=== PATIENT | female | born 1960 | race Caucasian/White ===

== ENCOUNTER → 2020-06-13 10:16 | Outpatient (BNVA) | payer MEDICAID, SELFPAY | PROVIDERS: PCP Nurse Practitioner Family; Referring Provider Nurse Practitioner Family; Visit Provider Physician Assistant | DX: M67.432 Ganglion, left wrist (principal) | CPT/HCPCS: 99202; 99212 ==

== ENCOUNTER 2020-06-25 10:39 | Day surgery (SDC) | payer MEDICAID, SELFPAY ==
[2020-06-25] VITALS (7 sets, daily range): BP systolic 110–147; BP diastolic 71–99; PULSE 72–78; RESP 12–18; TEMP 36.1–36.2; O2SAT 96–100; BMI 42.3
--- NOTE | 2020-06-25 13:09 | HO.ANESPROP2 ---
[facility] [place] Past Medical History Medical History Asthma HTN (hypertension) Surgical History Surgical History History of left knee surgery Social History Social History Alcohol intake: never Smoking Status: Never smoker Use of substances other than those prescribed or required for medical reasons: No Advance Directives: No Meds Allergies Allergy/AdvReac Type Severity Reaction Status Date / Time penicillin V Allergy Unknown Unknown Verified 06/13/20 10:28 Penicillins [PENICILLINS] Allergy Unknown RASH Unverified 05/09/20 16:07 seafood Allergy Severe anaphylaxis Uncoded 03/25/20 00:00 SEAFOOD Allergy Mild DIFFICULTY Uncoded 05/09/20 16:07 BREATHING Home Medications Medication Instructions Recorded Confirmed Type cholecalciferol (vitamin D3) 50 50 mcg PO DAILY 06/13/20 History mcg (2,000 unit) capsule loratadine 10 mg capsule 10 mg PO DAILY 06/13/20 History loratadine 5 mg/5 mL oral solution 5 ml PO BID 06/13/20 History Exam Exam Date and Time: June 25, 2020 1309 Height,Weight and Vital Signs: Height 5 ft Weight 98.43 kg Last Vital Signs Temp 97.2 F 06/25/20 11:02 Pulse 78 06/25/20 11:02 Resp 18 06/25/20 11:02 BP 147/85 H 06/25/20 11:02 Pulse Ox 96 06/25/20 11:02 Airway Mallampati Class: IV TM Dist: >3cm Neck ROM: Full
--- NOTE | 2020-06-25 13:15 | HO.ANESPROP2 ---
[facility] Past Medical History Medical History Asthma HTN (hypertension) Surgical History Surgical History History of left knee surgery Social History Social History Alcohol intake: never Smoking Status: Never smoker Use of substances other than those prescribed or required for medical reasons: No Advance Directives: No Meds Allergies Allergy/AdvReac Type Severity Reaction Status Date / Time penicillin V Allergy Unknown Unknown Verified 06/13/20 10:28 Penicillins [PENICILLINS] Allergy Unknown RASH Unverified 05/09/20 16:07 seafood Allergy Severe anaphylaxis Uncoded 03/25/20 00:00 SEAFOOD Allergy Mild DIFFICULTY Uncoded 05/09/20 16:07 BREATHING Home Medications Medication Instructions Recorded Confirmed Type cholecalciferol (vitamin D3) 50 50 mcg PO DAILY 06/13/20 History mcg (2,000 unit) capsule loratadine 10 mg capsule 10 mg PO DAILY 06/13/20 History loratadine 5 mg/5 mL oral solution 5 ml PO BID 06/13/20 History Exam Exam Date and Time: June 25, 2020 1315 Height,Weight and Vital Signs: Height 5 ft Weight 98.43 kg Last Vital Signs Temp 97.2 F 06/25/20 11:02 Pulse 78 06/25/20 11:02 Resp 18 06/25/20 11:02 BP 147/85 H 06/25/20 11:02 Pulse Ox 96 06/25/20 11:02
[2020-06-25] MEDS: ceFAZolin Sodium/Dextrose,Iso 2 GM/50 ML PIGGYBACK IV (13:19)
[2020-06-25] MEDS: Lactated Ringers 1,000 ML 100 ML IVCONT (13:19)
--- NOTE | 2020-06-25 14:34 | PM.OP ---
Brief Operative Note Date of procedure: 06/25/20 Pre-op diagnosis: Left dorsal wrist ganglion Post-op diagnosis: same Procedure: Left dorsal wrist ganglion excision biopsy Implants: None Surgeon: Shahrzad Waldron MD Anesthesia: MAC Estimated blood loss (mL): 2.0 Tourniquet time (min): 13 Pathology: other (Left dorsal wrist ganglion) Condition: stable Disposition: PACU
--- NOTE | 2020-06-25 14:36 | W.PM.OPN ---
Operative Note Operative Note Narrative: Preop diagnosis: Left dorsal wrist ganglion Postop diagnosis: Same Procedure: Left dorsal wrist ganglion excisional biopsy Surgeon: Shahrzad Waldron MD Anesthesia: Mac Findings: Left dorsal wrist ganglion approximately 1.5 cm in diameter by 2 cm in length filled with clear viscous fluid consistent with a ganglion Tourniquet time: 13 minutes EBL: 2.0 mm Specimen: Left dorsal wrist ganglion Drains: None Complications: None Disposition: Brought to the recovery room in stable condition Plan: Follow-up in 10-14 days for wound check, suture removal and to check pathology Indications: The patient is of 59-year-old woman with a left dorsal wrist ganglion that has been unresponsive to nonoperative management. The risks and benefits of operative treatment were discussed with her and she wished to proceed with surgery. Procedure: Once consent was obtained patient was brought back to the operating suite and placed in the operating table in a supine position. Perioperative antibiotics and MAC anesthesia were administered by the anesthesia team. Tourniquet was applied to the proximal aspect of her left upper extremity and the limb was prepped and draped in a standard surgical fashion. The limb was elevated exsanguinated with Esmarch bandage and the tourniquet inflated to 250 mm of mercury for a total tourniquet time of 13 minutes. A 2 cm longitudinal incision was made over the dorsal aspect of her left wrist centered over the dorsal wrist ganglion. Ganglion was located over the ECRL and ECRB tendons. The incision was made with a 15. Blade through the skin into the subcutaneous tissues. Tenotomy scissors were then used to carefully dissect down through the subcutaneous layer to the dorsal wrist ganglion. It measured approximately 1.5 cm in diameter by approximately 2 cm in length. It was carefully dissected free from the surrounding tissues. It is talk was passing through the interval between the ECRL and ECRB tendons. The Bovie was used to cauterize the stalk to reduce risk of recurrence. And the ganglion was cut and removed to the back table to be sent for histopathologic review. No further masses were identified. At this point the tourniquet was deflated and hemostasis obtained with a brief period of Local pressure and monopolar electrocautery. Wound was irrigated with normal saline. The subcutaneous layer was closed with some 4-0 Vicryl suture, and the skin edges were reapproximated with some 5 0 nylon suture. The wound was infiltrated with some 1% lidocaine with epinephrine for postop pain control under sterile dressing was applied. The patient appears to have tolerated the procedure well with no complications. All digits were well vascularized conclusion of the case.
--- NOTE | 2020-06-25 16:04 | PC.NURSE ---
INTER USED FOR DISCHARGE INSTRUCTIONS, PT JUST STARTING TO FEEL LOCAL WEARING OFF, PT CAN TAKE IBUPROFEN WITH FOOD AND VICODIN SCRIPT ELECT TO PHARMACY PAIN 09/01
== END 2020-06-25 15:50 | disposition home or self-care (01) ==
PROVIDERS: PCP Nurse Practitioner Family; Visit Provider Orthopaedic Surgery
PROC: (CPT 25111; principal; 2020-06-25 12:30)
DX: M67.432 Ganglion, left wrist (principal); I10 Essential (primary) hypertension; J45.909 Unspecified asthma, uncomplicated; Z88.0 Allergy status to penicillin; Z79.899 Other long term (current) drug therapy
CPT/HCPCS: 25111; 88304; J0690; J1100; J2250; J2405; J3010

== ENCOUNTER → 2020-07-04 13:48 | Outpatient (BNVA) | payer MEDICAID, SELFPAY | PROVIDERS: PCP Nurse Practitioner Family; Referring Provider Nurse Practitioner Family; Visit Provider Orthopaedic Surgery | DX: Z48.811 Encounter for surgical aftercare following surgery on the nervous system (principal) | CPT/HCPCS: 99212 ==

== ENCOUNTER 2020-07-16 13:10 | Outpatient (REF) | payer MEDICAID, SELFPAY ==
--- NOTE | 2020-07-16 | MM_ITS ---
EXAMINATION: MM SCREENING DIGITAL BREAST TOMOSYNTHESIS, BILATERAL CLINICAL INFORMATION: Screening. Asymptomatic. The lifetime risk of breast cancer based on the Tyrer-Cuzick Model is 7%. COMPARISON: Mammography: 07/12/2019, 07/01/2018, 06/22/2017 TECHNIQUE: Digital breast tomosynthesis is performed in both the craniocaudal and mediolateral oblique views along with computer-aided detection (CAD). Synthesized 2D images are generated from the tomosynthesis. FINDINGS: The breasts are almost entirely fatty (ACR BI-RADS breast composition Category a). There are no significant masses, abnormal calcifications, or other abnormalities. There are scattered bilateral benign round and rim calcifications. The skin contours are smooth. MM/MM tomosynthesis screening BI IMPRESSION: No mammographic evidence of malignancy. ASSESSMENT: BI-RADS 1: Negative RECOMMENDATION: Routine annual mammography screening. This patient's information was entered into a reminder system with a target due date for their next mammogram.
== END 2020-07-16 13:11 | disposition home or self-care (01) ==
LOC: HO.MAMMO 13:10
PROVIDERS: PCP Nurse Practitioner Family; Visit Provider Nurse Practitioner Family
DX: Z12.31 Encounter for screening mammogram for malignant neoplasm of breast (principal)
CPT/HCPCS: 77063; 77067

== ENCOUNTER 2021-08-07 13:27 | Outpatient (REF) | payer MEDICAID, SELFPAY ==
--- NOTE | ~2021-08-07 | MM_ITS ---
EXAMINATION: MM SCREENING DIGITAL BREAST TOMOSYNTHESIS, BILATERAL CLINICAL INFORMATION: Screening. Asymptomatic. The lifetime risk of breast cancer based on the Tyrer-Cuzick Model is 7.4%. COMPARISON: Mammography: July 16, 2020 and studies dating back to February 06, 2014 TECHNIQUE: Digital breast tomosynthesis is performed in both the craniocaudal and mediolateral oblique views along with computer-aided detection (CAD). Synthesized 2D images are generated from the tomosynthesis. FINDINGS: The breasts are almost entirely fatty (ACR BI-RADS breast composition Category a). There are no significant masses, abnormal calcifications, or other abnormalities. MM/MM tomosynthesis screening BI IMPRESSION: There are no significant changes from prior study. ASSESSMENT: BI-RADS 1: Negative RECOMMENDATION: Routine annual mammography screening. This patient's information was entered into a reminder system with a target due date for their next mammogram.
== END 2021-08-07 13:28 | disposition home or self-care (01) ==
LOC: HO.MAMMO 13:27
PROVIDERS: PCP Nurse Practitioner Family; Visit Provider Nurse Practitioner Family
DX: Z12.31 Encounter for screening mammogram for malignant neoplasm of breast (principal)
CPT/HCPCS: 77063; 77067

== ENCOUNTER 2022-03-16 11:58 | Outpatient (REF) | payer MEDICAID, SELFPAY ==
--- NOTE | ~2022-03-16 | XR_ITS ---
EXAMINATION: XR LUMBOSACRAL SPINE CLINICAL INFORMATION: Low back pain COMPARISON: CT abdomen and pelvis and radiographs lumbar spine 03/13/2020. TECHNIQUE: Three views of the lumbosacral spine. FINDINGS: Normal lumbar segmentation with 5 nonrib-bearing lumbar vertebrae of normal height and normal lumbar lordosis. There is no vertebral compression or destructive process. Again, there are multilevel degenerative disc changes with mild disc narrowing and variable mild endplate sclerosis and vertebral spurring. Degenerative changes are slightly increased at L1-L2, L2-L3, L4-L5 since 2020. There are again facet degenerative changes at L4-S1. There are grade 0-1 spondylolisthesis again noted at L4-L5, without significant change. The SI joints and visualized sacrum are unremarkable. XR/XR lumbar spine 2-3V IMPRESSION: -Multilevel degenerative disc changes slightly increased since prior exam 03/13/2020. -Facet degeneration again noted L4-S1. -Grade 0-1 spondylolisthesis L4-L5 similar to prior study.
== END 2022-03-16 11:59 | disposition home or self-care (01) ==
LOC: HO.XRAY 11:58
PROVIDERS: PCP Nurse Practitioner Family; Visit Provider Family Medicine
DX: M54.50 Low back pain, unspecified (principal)
CPT/HCPCS: 72100

== ENCOUNTER 2022-08-11 10:12 | Emergency (ER) | payer MEDICAID, SELFPAY ==
[2022-08-11 10:20] VITALS: BP 156/90; PULSE 93; RESP 18; TEMP 37; O2SAT 98; BMI 43.0
[2022-08-11 10:46] LABS: MANUAL DIFF FLAG NO
[2022-08-11 10:49] LABS: Basophils Absolute Auto 0.1 X10*3/uL (0.0-0.2); Basophils Percent Auto 0.7 % (0-2); Hematocrit 45.2 % (37.0-47.0); Hemoglobin 14.8 g/dl (12.0-16.0); Imm Gran Abs Auto 0.04 X10*3/uL (0.00-0.03); Imm Gran Pct Auto 0.5 % (0.0-0.4); Lymphocytes Absolute Auto 1.8 X10*3/uL (1.2-4.9); Lymphocytes Percent Auto 21.6 % (20-40); Mean Corpuscular HGB Conc 32.7 g/dl (31.0-35.0); Mean Corpuscular Hemoglobin 30.2 pg (27.0-33.0); Mean Corpuscular Volume 92.2 fL (80.0-98.0); Mean Platelet Volume 10.4 fL (9.4-12.3); Monocytes Absolute Auto 0.8 X10*3/uL (0.1-1.2); Neutrophils Absolute Auto 5.8 x10*3/uL (2.0-8.3); Neutrophils Percent Auto 68.2 % (45-73); Platelet Count 301 X10*3/uL (160-400); Red Cell Distribution Width 13.2 % (11.0-16.0); White Blood Count 8.5 X10*3/uL (4.8-10.8)
[2022-08-11 11:08] LABS: Alanine Aminotransferase 16 U/L (0-31); Albumin Level 4.2 g/dL (3.5-5.0); Alkaline Phosphatase 65 U/L (39-117); Anion Gap 12 (12-20); Aspartate Amino Transferase 16 U/L (5-31); Blood Urea Nitrogen 17 mg/dL (9-16); Calcium 9.3 mg/dL (8.4-10.2); Carbon Dioxide 27 mmol/L (22-29); Chloride 101 mmol/L (96-108); Creatinine Clr Calc Pharmacy 54.7; Estimated Glomerular Filt Rate 49; Glucose Random 165 mg/dL (60-115); Lipase 24 U/L (8-78); Potassium 4.2 mmol/L (3.3-5.1); Sodium 136 mmol/L (135-145); Total Protein 7.5 g/dL (6.5-8.0)
[2022-08-11 11:25] LABS: Influenza A PCR POSITIVE (Negative); Influenza B PCR NEGATIVE (Negative); Resp Syncy Virus RNA Qual PCR NEGATIVE (Negative); SARS COV2 PCR INHOUSE NEGATIVE (Negative)
--- NOTE | 2022-08-11 16:47 | ED.GENADULT ---
HPI - General Adult General Chief complaint: Dizziness Stated complaint: Headache/Dizziness/Nausea Time Seen by Provider: 08/11/22 16:14 History of Present Illness HPI narrative: Patient complains of headache body aches fever for 2 days, she went to [facility] yesterday and was told she had a virus they were unsure what it was and they gave her a L fluids and she was discharged home, today she woke up feeling exactly the same headache body aches fever and is unsure what is going on and wants to be checked again, there are no acute changes she does not have a stiff neck she is not short of breath she has no chest pain no abdominal pain no vomiting, she has a mild dry cough, mild runny nose, no sputum, at this time she is not dizzy or nauseous, no vomiting today Related Data Home Medications Medication Instructions Recorded Confirmed cholecalciferol (vitamin D3) 50 50 mcg PO DAILY 06/13/20 mcg (2,000 unit) capsule loratadine 10 mg capsule 10 mg PO DAILY 06/13/20 loratadine 5 mg/5 mL oral solution 5 ml PO BID 06/13/20 (Claritin) Previous Rx's Medication Instructions Recorded hydrocodone 5 mg-acetaminophen 325 1 tab PO Q4-6H PRN pain #5 tabs 06/25/20 mg tablet acetaminophen 500 mg tablet 1,000 mg PO TID PRN pain #30 tabs 08/11/22 ibuprofen 600 mg tablet 600 mg PO Q6H PRN fever or pain 08/11/22 #20 tabs ondansetron 4 mg disintegrating 4 mg PO Q6H PRN nausea and 08/11/22 tablet vomiting #7 tabs oseltamivir 75 mg capsule (Tamiflu) 75 mg PO Q12H 5 days #10 caps 08/11/22 Allergies Allergy/AdvReac Type Severity Reaction Status Date / Time penicillin V Allergy Unknown Unknown Verified 06/13/20 10:28 Penicillins [PENICILLINS] Allergy Unknown RASH Unverified 05/09/20 16:07 seafood Allergy Severe anaphylaxis Uncoded 03/25/20 00:00 SEAFOOD Allergy Mild DIFFICULTY Uncoded 05/09/20 16:07 BREATHING Review of Systems Review of Systems: No headache now no stiff neck no difficulty breathing or swallowing no sore throat no chest pain no shortness of breath no abdominal pain no nausea vomiting or diarrhea now no skin rash Yes all other systems are reviewed and are negative [facility] Past Medical History Source: nursing notes reviewed Medical History Asthma HTN (hypertension) Surgical History History of left knee surgery Social History Social History Alcohol intake: never Advance Directives: No Physical Exam ED Vital Signs: Vital Signs - 24 hr 08/11/22 10:20 Temperature 98.6 F Pulse Rate 93 Respiratory Rate 18 Blood Pressure 156/90 H Pulse Oximetry 98 Oxygen Delivery Method Room Air BMI result Body Mass Index 43.0 General appearance no acute distress Eyes anicteric no pallor, no redness no discharge Sinuses nontender The pharynx is clear without redness swelling or exudate membranes are moist Neck is supple Chest clear to auscultation bilateral Heart no murmur Abdomen soft nontender Extremities full range of motion x4 Neuro gait and balance are normal, interaction both comprehension and expression are normal, cranial nerves 2-12 intact as tested and motor is 5/5 x4 Course Course Course Narrative: Well-appearing patient, interacting normally balance and gait are normal, she is not dizzy now she is not nauseous she tolerates p.o. tested positive for flu and was discharged home CBC and chemistry did not have any significant abnormalities Medical Decision Making Lab Data MDM Lab Attestation statement: I reviewed the patient's lab results. Result Diagrams: 08/11/22 10:43 08/11/22 10:43 Labs: Lab Results 08/11/22 08/11/22 08/11/22 Range/Units 10:43 10:43 10:43 WBC 8.5 (4.8-10.8) X10*3/uL RBC 4.90 (4.20-5.50) X10*6/uL Hgb 14.8 (12.0-16.0) g/dl Hct 45.2 (37.0-47.0) % MCV 92.2 (80.0-98.0) fL MCH 30.2 (27.0-33.0) pg MCHC 32.7 (31.0-35.0) g/dl RDW 13.2 (11.0-16.0) % Plt Count 301 (160-400) X10*3/uL MPV 10.4 (9.4-12.3) fL Immature Gran % (Auto) 0.5 H (0.0-0.4) % Neut % (Auto) 68.2 (45-73) % Lymph % (Auto) 21.6 (20-40) % Erath % (Auto) 9.0 (2-11) % Eos % (Auto) 0.0 (0-4) % Baso % (Auto) 0.7 (0-2) % Lymph # (Auto) 1.8 (1.2-4.9) X10*3/uL Erath # (Auto) 0.8 (0.1-1.2) X10*3/uL Eos # (Auto) 0.0 (0.0-0.4) X10*3/uL Baso # (Auto) 0.1 (0.0-0.2) X10*3/uL Abs Immat Gran (auto) 0.04 H (0.00-0.03) X10*3/uL Absolute Neuts (auto) 5.8 (2.0-8.3) x10*3/uL Absolute Nucleated RBC 0.000 (0.0-0.012) X10*3/uL Nucleated RBC % (auto) 0.0 (0.0-0.2) /100WBC Sodium 136 (135-145) mmol/L Potassium 4.2 (3.3-5.1) mmol/L Chloride 101 (96-108) mmol/L Carbon Dioxide 27 (22-29) mmol/L Anion Gap 12 (12-20) BUN 17 H (9-16) mg/dL Creatinine 1.13 (0.5-1.4) mg/dL Estim Creat Clear Calc 54.7 Estimated GFR 49 Random Glucose 165 H (60-115) mg/dL Calcium 9.3 (8.4-10.2) mg/dL Total Bilirubin 1.0 (0.0-1.0) mg/dL AST 16 (5-31) U/L ALT 16 (0-31) U/L Alkaline Phosphatase 65 (39-117) U/L Total Protein 7.5 (6.5-8.0) g/dL Albumin 4.2 (3.5-5.0) g/dL Lipase 24 (8-78) U/L Influenza Type A (PCR) POSITIVE A (Negative) Influenza Type B (PCR) NEGATIVE (Negative) RSV RNA Qual (PCR) NEGATIVE (Negative) SARS-CoV-2 RNA (RT-PCR) NEGATIVE (Negative) Discharge Plan Discharge Clinical Impression: Influenza Patient Disposition: Home, Self-Care Additional Instructions: You tested positive for flu You have common flu symptoms of headache fever body aches I prescribed a medication for flu called Tamiflu, it does not cure the flu but it may relieve symptoms somewhat If the Tamiflu medication causes stomach upset or any side effects or problems stop the medication as it will not cure the flu Return any time for dehydration difficulty breathing uncontrolled vomiting any worse condition or any concerns Prescriptions: New ibuprofen 600 mg tablet 600 mg PO Q6H PRN (Reason: fever or pain) Qty: 20 0RF ondansetron 4 mg tablet,disintegrating 4 mg PO Q6H PRN (Reason: nausea and vomiting) Qty: 7 0RF acetaminophen 500 mg tablet 1,000 mg PO TID PRN (Reason: pain) Qty: 30 0RF oseltamivir [Tamiflu] 75 mg capsule 75 mg PO Q12H 5 Days Qty: 10 0RF No Action hydrocodone-acetaminophen 5-325 mg tablet 1 tab PO Q4-6H PRN (Reason: pain) Qty: 5 0RF Interventions: ED Discharge Assessment Last Done: 08/11/22 17:42 Discharge Date/Time: 08/11/22 17:43
== END 2022-08-11 17:43 | disposition home or self-care (01) ==
PROVIDERS: Emergency Provider Emergency Medicine; PCP Nurse Practitioner Family
DX: J11.1 Influenza due to unidentified influenza virus with other respiratory manifestations (principal); R51.9 Headache, unspecified; Z20.822 Contact with and (suspected) exposure to COVID-19
CPT/HCPCS: 0241U; 80053; 83690; 85025; 99282; 99283

== ENCOUNTER 2023-04-28 20:13 | Emergency (ER) | payer MEDICAID, SELFPAY ==
--- NOTE | ~2023-04-28 | XR_ITS ---
EXAMINATION: XR ANKLE, RIGHT CLINICAL INFORMATION: Swelling; history of gout. COMPARISON: Right heel radiographs dated 10/24/2016. TECHNIQUE: AP, lateral, and mortise views of the right ankle. FINDINGS: Bony alignment and mineralization are normal. The ankle mortise is intact. No fracture, dislocation or right ankle joint effusion is seen. Boehler's angle is normal. There are large posterior and plantar calcaneal spurs. There is moderate soft tissue swelling adjacent to the lateral malleolus. XR/XR ankle RT min 3V IMPRESSION: 1. No fracture, dislocation or right ankle joint effusion is seen. 2. There is moderate soft tissue swelling adjacent to the right lateral malleolus. 3. There are large right calcaneal posterior and plantar spurs.
[2023-04-28 21:35] VITALS: BP 157/79; PULSE 96; RESP 16; TEMP 36.4; O2SAT 95; BMI 42.6
[2023-04-28 22:01] VITALS: BP 104/90; PULSE 86; RESP 16; TEMP 36.9; O2SAT 98
--- NOTE | 2023-04-28 22:21 | ED_ITS ---
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 Patient with known history of gout to the left great toe and patient has to walk on her lateral edge of the right foot causing pain and swelling in the ankle. No fever, no chills, no redness. Patient declined any trauma or fall or twisting to the ankle. Related Data Home Medications Medication Instructions Recorded Confirmed cholecalciferol (vitamin D3) 50 50 mcg PO DAILY 06/13/20 mcg (2,000 unit) capsule loratadine 10 mg capsule 10 mg PO DAILY 06/13/20 loratadine 5 mg/5 mL oral solution 5 ml PO BID 06/13/20 (Claritin) Previous Rx's Medication Instructions Recorded hydrocodone 5 mg-acetaminophen 325 1 tab PO Q4-6H PRN pain #5 tabs 06/25/20 mg tablet acetaminophen 500 mg tablet 1,000 mg PO TID PRN pain #30 tabs 08/11/22 ibuprofen 600 mg tablet 600 mg PO Q6H PRN fever or pain 08/11/22 #20 tabs ondansetron 4 mg disintegrating 4 mg PO Q6H PRN nausea and 08/11/22 tablet vomiting #7 tabs oseltamivir 75 mg capsule (Tamiflu) 75 mg PO Q12H 5 days #10 caps 08/11/22 Allergies Allergy/AdvReac Type Severity Reaction Status Date / Time penicillin V Allergy Unknown Unknown Verified 04/28/23 21:40 Penicillins [PENICILLINS] Allergy Unknown RASH Verified 04/28/23 21:40 seafood Allergy Severe anaphylaxis Uncoded 04/28/23 21:40 SEAFOOD Allergy Mild DIFFICULTY Uncoded 04/28/23 21:40 BREATHING Review of Systems Review of Systems: All other systems are reviewed and are negative Constitutional: Reports as per HPI and Reports no additional constitutional complaints Eyes: Reports as per HPI and Reports no additional eye complaints Reports system reviewed and no additional complaints, except as documented Cardiovascular: Reports as per HPI and Reports no additional cardiovascular complaints Respiratory: Reports as per HPI and Reports no additional respiratory complaints Gastrointestinal: Reports as per HPI and Reports no additional gastrointestinal complaints Genitourinary: Reports no additional female genitourinary complaints Musculoskeletal: Reports no additional musculoskeletal complaints Skin/Breast: Reports system reviewed and no additional complaints, except as docu Psychiatric: Reports no additional psychiatric complaints Endocrine: Reports no additional endocrine complaints Hematologic/Lymphatic: Reports no additional hematologic/lymphatic complaints Allergic/Immunologic: Reports no additional allergic/immunologic complaints Reports system reviewed and no additional complaints, except as documented and Reports Abnormal speech present [facility] Past Medical History Medical History Asthma HTN (hypertension) Surgical History History of left knee surgery Social History Social History Alcohol intake: never Advance Directives: No Advance Directives Information Provided: Yes Physical Exam Vital Signs: Vital Signs: Last Vital Signs Temp 98.5 F 04/28/23 22:01 Pulse 86 04/28/23 22:01 Resp 16 04/28/23 22:01 BP 104/90 H 04/28/23 22:01 Pulse Ox 98 04/28/23 22:01 O2 Del Method Room Air 04/28/23 22:01 BMI result Body Mass Index 42.6 Vital signs have been reviewed as appeared to be correct. Blood pressure normal. Heart rate normal. Respiration rate normal. Temperature normal. Oxygen saturation normal. Appearance: Alert. Oriented X3. No acute distress. Head: Normal external exam. Normocephalic. Atraumatic. No Crum signs noted. No raccoon eyes noted Eyes: PERRLA. EOMI. Conjunctiva and sclera normal. Eyelids normal. ENT: TM's Normal. Pharynx normal. Uvula midline. Moist mucous membranes. No trismus noted. No drooling noted. No muffled voice noted. Neck: Normal inspection. Neck supple. FROM. No adenopathy. Thyroid Normal. No meningeal signs. No neck mass noted. CVS: Normal heart rate and rhythm. Heart sound normal. No murmurs noted. Pulses normal throughout. Respiratory: No respiratory distress. Painless inspiration. Breath sounds normal. No wheezes/rales/rhonchi noted. Chest nontender. No accessory muscle usage noted or decreased air movement noted. Abdomen: Soft and nontender. Bowel sounds normal in all 4 quadrants. No di stention noted. No organomegaly noted. No visible injury noted. Back: No CVA tenderness. Full range of motion noted. Skin: Skin warm and dry. Normal skin color. Normal skin turgor. No rashes/le sions/lacerations noted. Extremities: Right foot/ankle: Swelling over the lateral malleolus with tenderness, no deformity, step-off. Strong PT/DP pulses. Neuro: Oriented X 3. Cranial nerve exam: II-XII are grossly intact No motor deficit. No sensory deficit. Reflexes normal. Course Course Course Narrative: Ankle swelling with pain due to a sprain patient is trying to walk on her lateral side of the foot. No acute fracture, neurovascular exam is intact, will apply Moo bandage wrap and apply ice with NSAIDs if needed. Medical Decision Making Differential Diagnosis Differential Diagnoses: The differential diagnosis associated with the presentation includes (Ankle fracture, ankle sprain, ankle effusion, joint infection, arthritis.) Admission/Observation Consideration of admission/observation: Escalation of care including admission/observation considered Independent Interpretation I performed an independent interpretation of an: Plain X-Ray (Right ankle: No fracture or dislocation.) Radiology Impression Discussion of test interpretation with radiology: I have reviewed the radiologist's reading. (1. No fracture, dislocation or right ankle joint effusion is seen. 2. There is moderate soft tissue swelling adjacent to the right lateral malleolus. 3. There are large right calcaneal posterior and plantar spurs.) Discharge Plan Discharge Clinical Impression: Ankle sprain Patient Disposition: Home, Self-Care Instructions: Ankle Sprain (ED) Prescriptions: No Action hydrocodone-acetaminophen 5-325 mg tablet 1 tab PO Q4-6H PRN (Reason: pain) Qty: 5 0RF ibuprofen 600 mg tablet 600 mg PO Q6H PRN (Reason: fever or pain) Qty: 20 0RF ondansetron 4 mg tablet,disintegrating 4 mg PO Q6H PRN (Reason: nausea and vomiting) Qty: 7 0RF acetaminophen 500 mg tablet 1,000 mg PO TID PRN (Reason: pain) Qty: 30 0RF oseltamivir [Tamiflu] 75 mg capsule 75 mg PO Q12H 5 Days Qty: 10 0RF Referrals: [facility] [Primary Care Provider] -
== END 2023-04-28 23:04 | disposition home or self-care (01) ==
PROVIDERS: Emergency Provider Emergency Medicine
DX: S93.401A Sprain of unspecified ligament of right ankle, initial encounter (principal); X58.XXXA Exposure to other specified factors, initial encounter; M77.31 Calcaneal spur, right foot; Y93.9 Activity, unspecified; Y92.9 Unspecified place or not applicable; Y99.9 Unspecified external cause status
CPT/HCPCS: 73610; 99283

== ENCOUNTER 2023-05-13 11:34 | Outpatient (REF) | payer MEDICAID, SELFPAY ==
[2023-05-13 13:05] LABS: MANUAL DIFF FLAG NO
[2023-05-13 13:16] LABS: Basophils Absolute Auto 0.1 X10*3/uL (0.0-0.2); Basophils Percent Auto 0.9 % (0-2); Eosinophils Absolute Auto 0.7 X10*3/uL (0.0-0.4); Eosinophils Percent Auto 9.7 % (0-4); Hematocrit 42.1 % (37.0-47.0); Hemoglobin 13.7 g/dl (12.0-16.0); Imm Gran Abs Auto 0.01 X10*3/uL (0.00-0.03); Imm Gran Pct Auto 0.1 % (0.0-0.4); Lymphocytes Absolute Auto 2.2 X10*3/uL (1.2-4.9); Lymphocytes Percent Auto 28.9 % (20-40); Mean Corpuscular HGB Conc 32.5 g/dl (31.0-35.0); Mean Corpuscular Volume 92.1 fL (80.0-98.0); Mean Platelet Volume 10.7 fL (9.4-12.3); Monocytes Absolute Auto 0.6 X10*3/uL (0.1-1.2); Monocytes Percent Auto 7.7 % (2-11); Neutrophils Percent Auto 52.7 % (45-73); Platelet Count 320 X10*3/uL (160-400); Red Blood Count 4.57 X10*6/uL (4.20-5.50); Red Cell Distribution Width 13.3 % (11.0-16.0); White Blood Count 7.6 X10*3/uL (4.8-10.8)
[2023-05-13 13:37] LABS: Estimated Average Glucose 108 mg/dL; Hemoglobin A1c % 5.4 % (<6.0)
[2023-05-13 13:38] LABS: Alanine Aminotransferase 15 U/L (0-31); Albumin Level 3.7 g/dL (3.5-5.0); Alkaline Phosphatase 64 U/L (39-117); Anion Gap 13 (12-20); Aspartate Amino Transferase 17 U/L (5-31); Bilirubin Total 1.1 mg/dL (0.0-1.0); Blood Urea Nitrogen 12 mg/dL (9-16); Calcium 9.4 mg/dL (8.4-10.2); Carbon Dioxide 26 mmol/L (22-29); Chloride 107 mmol/L (96-108); Cholesterol 177 mg/dL (<200); Estimated Glomerular Filt Rate > 60; Glucose Random 89 mg/dL (60-115); HDL Cholesterol 44 mg/dL (>40); LDL Cholesterol Calculated 112 mg/dL (<100); Sodium 142 mmol/L (135-145); Total Protein 7.2 g/dL (6.5-8.0); Triglycerides 109 mg/dL (<150)
[2023-05-13 13:46] LABS: TSH reflex Free T4 1.25 uIU/mL (0.32-4.0)
[2023-05-13 15:43] LABS: CT PCR NOT DETECTED (Not Detect.); NG PCR NOT DETECTED (Not Detect.)
[2023-05-14 08:17] LABS: HIV AB/AG Nonreactive (Nonreactive); HIV Num 1 0.04 S/CO (0.00-0.99)
[2023-05-17 12:04] LABS: HCV Log PCR <1.18 NOT DETECTED Log IU/mL (NOT DETECTED); HepC Viral Load <15 NOT DETECTED IU/mL (NOT DETECTED)
[2023-05-17 12:24] LABS: RPR Rapid Plasma Reagin NON-REACTIVE (NON-REACTIVE)
[2023-05-18 12:58] LABS: VITAMIN D (1,25 OH) D3 27 pg/mL; Vit D (1,25-Dihydroxy) Total 27 pg/mL (18-72); Vitamin D (1,25 OH) D2 <8 pg/mL
== END 2023-05-13 11:35 | disposition home or self-care (01) ==
LOC: HO.HHCL 11:34
PROVIDERS: Visit Provider Registered Nurse
DX: Z00.00 Encounter for general adult medical examination without abnormal findings (principal); Z20.2 Contact with and (suspected) exposure to infections with a predominantly sexual mode of transmission
CPT/HCPCS: 0353U; 80053; 80061; 82652; 83036; 84443; 85025; 86592; 87389; 87522

== ENCOUNTER 2023-05-27 17:55 | Outpatient (REF) | payer MEDICAID, SELFPAY | END 2023-05-27 17:56 | disposition home or self-care (01) | LOC: HO.HHCLNP 17:55 | PROVIDERS: Visit Provider Advanced Practice Midwife | DX: Z01.419 Encounter for gynecological examination (general) (routine) without abnormal findings (principal) | CPT/HCPCS: 87624; 88142 ==

== ENCOUNTER 2023-06-10 12:15 | Outpatient (REF) | payer MEDICAID, SELFPAY ==
--- NOTE | ~2023-06-10 | MM_ITS ---
EXAMINATION: MM SCREENING DIGITAL BREAST TOMOSYNTHESIS, BILATERAL CLINICAL INFORMATION: Screening. Asymptomatic. COMPARISON: Mammography: 08/07/2021, and dating back to 2009. TECHNIQUE: Digital breast tomosynthesis is performed in both the craniocaudal and mediolateral oblique views along with computer-aided detection (CAD). Synthesized 2D images are generated from the tomosynthesis. Additional bilateral MLO projections were performed. FINDINGS: The breasts are almost entirely fatty (ACR BI-RADS breast composition Category a). Scattered benign calcifications bilaterally. There are no suspicious masses, suspicious grouped calcifications, or areas of architectural distortion in either breast. The parenchymal pattern is stable from prior exams. MM/MM tomosynthesis screening BI IMPRESSION: No mammographic evidence of malignancy. Stable benign findings. ASSESSMENT: BI-RADS BI-RADS 2 - Benign Findings RECOMMENDATION: Routine annual mammography screening. 1 year F/U This examination should not preclude the clinical evaluation of a suspicious palpable abnormality. This patient's information was entered into a reminder system with a target due date for their next mammogram.
== END 2023-06-10 12:16 | disposition home or self-care (01) ==
LOC: HO.MAMMO 12:15
PROVIDERS: PCP Registered Nurse; Visit Provider Registered Nurse
DX: Z12.31 Encounter for screening mammogram for malignant neoplasm of breast (principal)
CPT/HCPCS: 77063; 77067

== ENCOUNTER → 2023-06-10 12:30 | Outpatient (BNV) | payer MEDICAID, SELFPAY | PROVIDERS: PCP Registered Nurse; Visit Provider Radiology Diagnostic Radiology | DX: Z12.31 Encounter for screening mammogram for malignant neoplasm of breast (principal) | CPT/HCPCS: 77063; 77067 ==

== ENCOUNTER 2023-06-20 09:39 | Emergency (ER) | payer MEDICAID, SELFPAY ==
--- NOTE | ~2023-06-20 | XR_ITS ---
EXAMINATION: XR LUMBOSACRAL SPINE CLINICAL INFORMATION: Lower back pain. COMPARISON: Lumbar spine radiographs dated 03/16/2022. TECHNIQUE: Three views of the lumbosacral spine. FINDINGS: The lumbar lordosis is maintained. Minimal grade 1 anterolisthesis of L4 on L5, unchanged. No acute fracture or subluxation. No loss of vertebral body height. Multilevel loss of intervertebral disc height with bilateral facet arthropathy appears similar when compared to the prior examination. No concerning lytic or blastic osseous lesion. No abnormal soft tissue calcification. XR/XR lumbar spine 2-3V IMPRESSION: 1. Minimal grade 1 anterolisthesis of L4 on L5, unchanged. 2. Multilevel degenerative disc disease and bilateral facet arthropathy, unchanged.
[2023-06-20 09:42] VITALS: BP 156/89; PULSE 88; RESP 19; TEMP 36.6; O2SAT 98; BMI 42.8
--- NOTE | 2023-06-20 10:33 | ED_ITS ---
HPI - General Adult General Chief complaint: Back Pain/Injury Stated complaint: back pain Time Seen by Provider: 06/20/23 09:47 Source: patient Mode of arrival: ambulatory Limitations: no limitations History of Present Illness HPI narrative: 62-year-old female with history of lumbar radiculopathy presents to ED for left- sided back pain that is worse on movement for the past 2 weeks. Patient denies any recent trauma, dysuria, hematuria, increased urinary frequency, nausea, vomiting, abdominal pain, or any urinary/ bowel incontinence. Patient states no fever chills. Patient denies any IV drug use or any history of HIV or hep C. Related Data Home Medications Medication Instructions Recorded Confirmed cholecalciferol (vitamin D3) 50 50 mcg PO DAILY 06/13/20 mcg (2,000 unit) capsule loratadine 10 mg capsule 10 mg PO DAILY 06/13/20 loratadine 5 mg/5 mL oral solution 5 ml PO BID 06/13/20 (Claritin) Previous Rx's Medication Instructions Recorded hydrocodone 5 mg-acetaminophen 325 1 tab PO Q4-6H PRN pain #5 tabs 06/25/20 mg tablet acetaminophen 500 mg tablet 1,000 mg (2 x 500 mg) PO TID PRN 08/11/22 pain #30 tabs ibuprofen 600 mg tablet 600 mg PO Q6H PRN fever or pain 08/11/22 #20 tabs ondansetron 4 mg disintegrating 4 mg PO Q6H PRN nausea and 08/11/22 tablet vomiting #7 tabs oseltamivir 75 mg capsule (Tamiflu) 75 mg PO Q12H 5 days #10 caps 08/11/22 cefuroxime axetil 250 mg tablet 250 mg PO Q12H 7 days #14 tabs 06/20/23 cyclobenzaprine 10 mg tablet 10 mg PO TID PRN muscle spasm 5 06/20/23 days #15 tabs ketorolac 10 mg tablet 10 mg PO Q6H 5 days #20 tabs 06/20/23 prednisone 20 mg tablet 40 mg (2 x 20 mg) PO DAILY 5 days 06/20/23 #10 tabs Allergies Allergy/AdvReac Type Severity Reaction Status Date / Time penicillin V Allergy Unknown Unknown Verified 06/20/23 09:42 Penicillins [PENICILLINS] Allergy Unknown RASH Verified 06/20/23 09:42 seafood Allergy Severe anaphylaxis Uncoded 06/20/23 09:42 SEAFOOD Allergy Mild DIFFICULTY Uncoded 06/20/23 09:42 BREATHING Review of Systems Review of Systems: Back pain worse on movement Yes all other systems are reviewed and are negative ON LICENSE OF [facility] Past Medical History Medical History Asthma HTN (hypertension) Surgical History History of left knee surgery Social History Social History Alcohol intake: never Smoked in Last 30 Days: No Use of substances other than those prescribed or required for medical reasons: No Advance Directives: No Advance Directives Information Provided: No Patient : No Physical Exam ED Vital Signs: Vital Signs - 24 hr 06/20/23 09:42 06/20/23 11:39 Temperature 98 F 97.9 F Pulse Rate 88 78 Respiratory Rate 19 16 Blood Pressure 156/89 H 140/77 H Pulse Oximetry 98 98 Oxygen Delivery Method Room Air Room Air BMI result Body Mass Index 42.8 Const General: cooperative, healthy appearing, comfortable, no acute distress, well developed and alert Orientation/consciousness: oriented to person, oriented to place, oriented to time and patient oriented x3 HENMT Head: Yes normal to inspection, Yes No palpable skull fracture present, Yes normocephalic and Yes atraumatic Eyes General: appearance normal, both eyes and all related structures Neck Neck: Yes normal visual inspection, Yes full ROM, Yes no lymphadenopathy, Yes no meningeal signs, Yes trachea midline, Yes supple, No anterior neck swelling and No tender Chest Chest palpation & inspection: normal inspection of the chest and normal palpation of entire chest wall Resp Effort & Inspection: normal respiratory effort and able to speak in complete sentences Auscultation: clear to auscultation bilaterally Cardio Jugular venous distension: no JVD Heart sounds: S1 normal heart sound present and S2 normal heart sound present GI Inspection: Yes normal to inspection Palpation (GI): Soft to palpation, not firm, nontender, no guarding and not r igid General: Yes no CVA tenderness Back/Spine/Pelvis Back: no CVA tenderness and back tenderness (left lumbar muscular pain on movement. ) Skin General skin exam: no rashes or lesions noted, elasticity normal and turgor normal Neuro General: oriented to person, oriented to place, oriented to time, patient oriented x3, gait normal, tone normal, moves all extremities, Normal light touch and pain sensation, no meningeal signs, no focal motor deficits, CN's II-XI intact bilaterally and normal sensation to monofilament Extrem General: Yes normal to inspection, Yes full ROM and Yes capillary refill normal Psych Appearance: grossly normal, well kempt and not disheveled Medications Administered Discontinued Medications Generic Name Dose Route Start Last Admin Trade Name Jose Carlos PRN Reason Stop Dose Admin Cyclobenzaprine HCl 10 mg 06/20/23 10:03 06/20/23 10:57 Cyclobenzaprine Hcl 10 Mg Tablet PO 06/20/23 10:04 10 mg ONCE ONE Administration Ketorolac Tromethamine 30 mg 06/20/23 10:03 06/20/23 10:58 Ketorolac Tromethamine 30 Mg/Ml Vial IM 06/20/23 10:04 30 mg ONCE ONE Administration Prednisone 60 mg 06/20/23 10:03 06/20/23 10:58 Prednisone 20 Mg Tablet PO 06/20/23 10:04 60 mg ONCE ONE Administration Medical Decision Making Medical Decision Making [facility] Narrative: 62 Yo female history of lumbar radiculopathy presents to ED for lower back pain worse on movement for the past 2 weeks. Patient denies any trauma, dysuria, hematuria, abdominal pain, nausea, vomiting, fever, chills, any urinary/ bowel incontinence. X-ray and UA ordered. 11:36am: Lumbar spine x-ray shows degenerative disc disease. UA shows possible mild urinary tract infection. Patient will be discharged with pain medication and antibiotics. Patient explain worrisome signs and told to return to ED if she has [place] any other concerning symptoms. Patient informed to follow- up with primary care provider Differential Diagnosis Differential Diagnoses: The differential diagnosis associated with the presentation includes ( UTI, kidney stones, pyelonephritis, lumbar radiculopathy, muscular back pain) Lab Data [facility] Lab Attestation statement: I reviewed the patient's lab results. Labs: Lab Results 06/20/23 Range/Units 10:29 Urine Color Yellow Urine Appearance Clear Urine pH 5.5 (5.0-9.0) Ur Specific [place] 1.010 (1.005-1.025) Urine Protein Negative (Neg-Trace) mg/dL Urine Glucose (UA) Negative (Negative) mg/dL Urine Ketones Negative (Negative) mg/dL Urine Blood Trace H (Negative) Urine Nitrite Negative (Negative) Ur Leukocyte Esterase Trace H (Negative) Urine RBC 3-5 H (0-2) /HPF Urine WBC 0-5 (0-5) /HPF Ur Squamous Epith Cells 3-5 (0-2) /HPF Urine Bacteria Trace (None Seen) Hyaline Casts 0-2 (0-2) /LPF Independent Interpretation I performed an independent interpretation of an: Plain X-Ray Radiology Impression Discussion of test interpretation with radiology: I have reviewed the radiologist's reading. Independent Historian Clinical information obtained from an independent historian. History obtained from or confirmed by: Other (Daughter) External Record Review External record reviewed: Other (prior ED visist) Prescription Management I considered prescription management with: Pain Medication and Antibiotic Discharge Plan Discharge Clinical Impression: Lumbar radiculopathy, UTI (urinary tract infection) Patient Disposition: Home, Self-Care Instructions: Urinary Tract Infection in Women (ED), Lumbar Radiculopathy (ED) Additional Instructions: La radiograf?a muestra yonathan enfermedad degenerativa del disco. La orina muestra yonathan posible reza?a infecci?n del tracto urinario. Le corie?n de oriana con antibi?ticos y analg?sicos. Heike un seguimiento con martinez proveedor de atenci?n primaria. Regrese al servicio de urgencias de inmediato si presenta cualquier dolor en el costado, fiebre, escalofr?os, n?useas, v?mitos, hematuria, disuria, incontinencia urinaria/intestinal, entumecimiento/debilidad de las extremidades inferiores, dolor abdominal o cualquier otro s?ntoma preocupante. Do not take any other NSAIDS with ketoralac. Prescriptions: New ketorolac 10 mg tablet 10 mg PO Q6H 5 Days Qty: 20 0RF Rx Instructions: Received 30mg IM toradol in the ED prednisone 20 mg tablet 40 mg PO DAILY 5 Days Qty: 10 0RF cyclobenzaprine 10 mg tablet 10 mg PO TID PRN (Reason: muscle spasm) 5 Days Qty: 15 0RF Rx Instructions: side effect is drowsiness. Do not take at work or while driving. cefuroxime axetil 250 mg tablet 250 mg PO Q12H 7 Days Qty: 14 0RF No Action hydrocodone-acetaminophen 5-325 mg tablet 1 tab PO Q4-6H PRN (Reason: pain) Qty: 5 0RF ibuprofen 600 mg tablet 600 mg PO Q6H PRN (Reason: fever or pain) Qty: 20 0RF ondansetron 4 mg tablet,disintegrating 4 mg PO Q6H PRN (Reason: nausea and vomiting) Qty: 7 0RF acetaminophen 500 mg tablet 1,000 mg PO TID PRN (Reason: pain) Qty: 30 0RF oseltamivir [Tamiflu] 75 mg capsule 75 mg PO Q12H 5 Days Qty: 10 0RF Interventions: ED Discharge Assessment Last Done: 06/20/23 12:08 Discharge Date/Time: 06/20/23 12:08 Print Language: Greenlandic
[2023-06-20 10:35] LABS: Appearance Urine Clear; Color Urine Yellow; Glucose Urine UA Negative (Negative); Leukocyte Esterase Urine Trace (Negative); Nitrite Urine Negative (Negative); PH 5.5 (5.0-9.0); UMIC TRIGGER UACC YES; Urine Blood Trace (Negative); Urine Ketones Negative (Negative); Urine Protein Negative (Neg-Trace)
[2023-06-20 10:40] LABS: Bacteria Urine Trace (None Seen); Hyaline Casts Urine 0-2 /LPF (0-2); WBC Urine 0-5 /HPF (0-5)
[2023-06-20] MEDS: Cyclobenzaprine HCl 10 MG TABLET PO (10:57)
[2023-06-20] MEDS: Ketorolac Tromethamine 30 MG/ML VIAL IM (10:58)
[2023-06-20] MEDS: predniSONE 20 MG TABLET 60 MG PO (10:58)
[2023-06-20 11:39] VITALS: BP 140/77; PULSE 78; RESP 16; TEMP 36.6; O2SAT 98
== END 2023-06-20 12:08 | disposition home or self-care (01) ==
PROVIDERS: Physician Assistant; Emergency Provider Student in an Organized Health Care Education/Training Program; PCP Registered Nurse
DX: N39.0 Urinary tract infection, site not specified (principal); M54.16 Radiculopathy, lumbar region; M54.50 Low back pain, unspecified; Z79.899 Other long term (current) drug therapy
CPT/HCPCS: 72100; 81001; 96372; 99284; J1885

== ENCOUNTER 2023-06-30 12:20 | Outpatient (REF) | payer MEDICAID, SELFPAY ==
[2023-06-30 14:14] LABS: Anion Gap 11 (12-20); Blood Urea Nitrogen 11 mg/dL (9-16); Calcium 9.2 mg/dL (8.4-10.2); Carbon Dioxide 28 mmol/L (22-29); Chloride 104 mmol/L (96-108); Estimated Glomerular Filt Rate > 60; Glucose Random 91 mg/dL (60-115); Potassium 4.1 mmol/L (3.3-5.1); Sodium 139 mmol/L (135-145); Uric Acid 5.3 mg/dL (2.4-5.7)
== END 2023-06-30 12:21 | disposition home or self-care (01) ==
LOC: HO.HHCL 12:20
PROVIDERS: Visit Provider Registered Nurse
DX: M1A.0710 Idiopathic chronic gout, right ankle and foot, without tophus (tophi) (principal)
CPT/HCPCS: 36415; 80048; 84550

== ENCOUNTER 2024-06-15 11:29 | Outpatient (REF) | payer MEDICAID, SELFPAY ==
--- NOTE | ~2024-06-15 | MM_ITS ---
EXAMINATION: MM SCREENING DIGITAL BREAST TOMOSYNTHESIS, BILATERAL CLINICAL INFORMATION: Screening. Asymptomatic. COMPARISON: Mammography: Comparison is made with available priors TECHNIQUE: Digital breast mammography with tomosynthesis is performed in both the craniocaudal and mediolateral oblique views along with computer-aided detection (CAD). FINDINGS: There are scattered areas of fibroglandular density (ACR BI-RADS breast composition Category b). There are no significant masses, abnormal calcifications, or other abnormalities. MM/MM tomosynthesis screening BI IMPRESSION: No mammographic evidence of malignancy. ASSESSMENT: BI-RADS BI-RADS 1 - Negative RECOMMENDATION: Routine annual mammography screening. 1 year F/U This examination should not preclude the clinical evaluation of a suspicious palpable abnormality. This patient's information was entered into a reminder system with a target due date for their next mammogram. Electronically signed by: Jayna Lind DO 06/24/2024 10:30 AM EDT
== END 2024-06-15 11:30 | disposition home or self-care (01) ==
LOC: HO.MAMMO 11:29
PROVIDERS: Visit Provider Registered Nurse
DX: Z12.31 Encounter for screening mammogram for malignant neoplasm of breast (principal)
CPT/HCPCS: 77063; 77067

== ENCOUNTER → 2024-06-15 12:00 | Outpatient (BNV) | payer MEDICAID, SELFPAY | PROVIDERS: Visit Provider Internal Medicine | DX: Z12.31 Encounter for screening mammogram for malignant neoplasm of breast (principal) | CPT/HCPCS: 77063; 77067 ==